=== PATIENT | male | born 1970 | race Two or more races ===

== ENCOUNTER 2025-01-10 12:41 | Emergency (ER) | payer OTHER ==
[~2025-01-10] VITALS: Ht 160 cm; Wt 54.4 kg
[2025-01-10] MEDS ORDERED: COZAAR25 MG PO (13:23)
[2025-01-10] MEDS ORDERED: ATORVASTATIN CA10 MG PO (13:24)
[2025-01-10] MEDS ORDERED: METFORMIN HCL500 MG (13:24)
[2025-01-10] MEDS ORDERED: LASIX20 MG PO (13:24)
[2025-01-10] MEDS ORDERED: FAMOTIDINE/PF 20 MG/2 ML VIAL IV STA (17:01)
[2025-01-10] MEDS ORDERED: ORPHENADRINE CITRATE 30 MG/ML AMPUL IM STA (17:02)
[2025-01-10] MEDS ORDERED: ONDANSETRON HCL 2 MG/ML VIAL IV STA (17:02)
[2025-01-10] MEDS ORDERED: ONDANSETRON HCL 2 MG/ML VIAL ONE (17:17)
[2025-01-10] MEDS ORDERED: FAMOTIDINE/PF 20 MG/2 ML VIAL ONE (17:17)
[2025-01-10] MEDS ORDERED: ORPHENADRINE CITRATE 30 MG/ML AMPUL ONE (17:17)
[2025-01-10 17:46] LABS: BASO % 0.4 % (0.1-1.2); EOS # 0.03 (0.04-0.54); EOS % 0.2 % (0.7-7.0); LYMPH # 1.66 (1.18-3.74); LYMPH % 11.6 % (19.3-53.1); MEAN PLATELET VOLUME 10.20 fl (9.4-12.4); MONO # 1.02 (0.24-0.82); MONO % 7.1 % (4.7-12.5); NEUT # 11.49 (1.56-6.13); NEUT % 80.4 % (34.0-71.1); RED CELL DISTRIBUTION WIDTH 13.3 % (11.6-14.4)
[2025-01-10 18:08] LABS: ALT/SGPT 32.0 U/L (12-78); AST/SGOT 29.0 U/L (15-37); BILIRUBIN TOTAL 0.54 mg/dL (0.3-1.2); BUN CREA RATIO 15.0 (7.0-25.0); CREATININE SERUM 2.4 mg/dL (0.70-1.30); GFR 28.57; GLOBULINA 4.8 G/DL (2.4-3.5); GLUCOSE FASTING 109.0 mg/dL (65-100); OSMOLALITY SERUM 277.0 MOSM/KG (275-295)
[2025-01-10] MEDS ORDERED: ZANAFLEX4 MG PO (19:03)
[2025-01-10] MEDS ORDERED: PEPCID AC20 MG PO (19:03)
== END 2025-01-10 20:42 | disposition home or self-care (01) ==
LOC: ER 12:41
PROVIDERS: General Practice
DX: K29.70 Gastritis, unspecified, without bleeding (principal); M62.838 Other muscle spasm; M54.51 Vertebrogenic low back pain; I10 Essential (primary) hypertension; E11.9 Type 2 diabetes mellitus without complications; Z79.84 Long term (current) use of oral hypoglycemic drugs